=== PATIENT | male | born 1980 | race Caucasian/White ===

== ENCOUNTER → 2021-04-28 08:52 | Outpatient (CLI) | payer BC, SELFPAY | PROVIDERS: PCP Family Medicine; Visit Provider Nurse Practitioner | DX: Z20.822 Contact with and (suspected) exposure to COVID-19 (principal) | CPT/HCPCS: C9803; U0003; U0005 ==

== ENCOUNTER 2022-12-13 09:54 | Emergency (ER) | payer BC, SELFPAY ==
[2022-12-13 09:55] VITALS: BP 147/91; PULSE 116; RESP 17; TEMP 37.1; O2SAT 98; BMI 19.2
--- NOTE | 2022-12-13 10:09 | PC.NURSE ---
PT PLACED IN GOWN AND BLANKET PROVIDED
--- NOTE | 2022-12-13 10:15 | PC.NURSE ---
DR MISHRA AT BEDSIDE
--- NOTE | 2022-12-13 10:21 | US_ITS ---
FINAL REPORT TECHNIQUE: Ultrasound images of the testicles were obtained bilaterally. Color Doppler images were obtained. CLINICAL HISTORY: Right testicular swelling and pain COMPARISON: None FINDINGS: The testicles are normal in size There are no intratesticular masses seen.. There is proper flow within the testes. There is a complex septated right hydrocele which may be related to sequela from trauma or infection. Right epididymis is asymmetrically enlarged and hypervascular which could be due to right epididymitis. IMPRESSION: Possible right epididymitis with complex hydrocele. Urologic evaluation highly recommended. Reviewed, Interpreted and Dictated by Cameron Hatch MD Transcribed by Kylie Benton Authenticated and [facility]
--- NOTE | 2022-12-13 10:22 | PC.NURSE ---
Dr. Randolph and I at bedside for exam.
--- NOTE | 2022-12-13 10:40 | HMH.EDGENADL ---
Discharge Plan Disposition Patient Disposition: Home, Self-Care Prescriptions Prescriptions: New doxycycline hyclate 100 mg capsule 100 mg PO BID 7 Days Qty: 14 0RF metronidazole 500 mg tablet 500 mg PO BID 7 Days Qty: 14 0RF Referrals Follow up/Referrals: Dennis Joel MD [Primary Care Provider] - See instructions Activity Restrictions/Add. Instructions Additional Instructions/Restrictions: Call your family doctor to establish care for this visit to the emergency department and schedule follow-up within 48 hours to ensure improvement. If you have any worsening of your condition or any other concerning signs or symptoms, return to the emergency department or your primary care doctor for further evaluation. Talk to Dr. Joel about following urology follow-up. Take both antibiotics twice daily for 7 days for entire course Clinical Impressions Clinical Impression: Epididymitis Instructions Patient Instructions: DI for Urinary Tract Infection (UTI), DI for Urinary Tract Infection in Children Discharge ED Provider: Marques Randolph General Adult HPI General Chief complaint: Urogenital-Male Stated complaint: inflation in male area Time Seen by Provider: 12/13/22 10:02 Mode of Arrival: Ambulatory Source of Information: Patient Limitations: No Limitations Description of Symptoms (Recalled from ER Triage Doc. by RN): PT C/O RIGHT SIDED TESTICLE PAIN AND SWELLING SINCE SATURDAY AFTER LIFTING WEIGHTS History of Present Illness HPI narrative: Is a 42-year-old male with history of anxiety presenting with right testicular pain. Patient states that started 4 days prior to arrival. No trauma to the area, fevers or chills, dysuria, hematuria, or any other related complaints. Pain is made worse with application of pressure. Pain was mild and dull at first, has been crescendo in nature over the past 3 days and came for further evaluation. Patient no history of STD or STI, not sexually active, or any other relevant history. Related Data Previous Rx's Medication Instructions Recorded doxycycline hyclate 100 mg capsule 100 mg PO BID 7 days #14 caps 12/13/22 metronidazole 500 mg tablet 500 mg PO BID 7 days #14 tabs 12/13/22 Allergies Allergy/AdvReac Type Severity Reaction Status Date / Time NO KNOWN ALLERGIES Allergy Uncoded 04/02/17 15:31 [facility] Disclaimer: The information contained in this section may have been updated after the patient was seen, as this information can be updated by other users. Social History Smoking Status: Never smoker alcohol intake: never current occupational status: unemployed Travel in the last 8 weeks: None ROS Obtained: Yes All systems reviewed & no additional complaints except as documented Physical Exam General General appearance: alert, in no apparent distress and other ( ) Head Head exam: atraumatic and normocephalic Eye Eye exam: Present normal appearance, PERRL and EOMI ENT ENT exam: Present mucous membranes moist Neck Neck exam: Present normal inspection, full ROM and trachea midline Respiratory Respiratory exam: Absent respiratory distress, wheezes, stridor, accessory muscle use or prolonged expiratory phase Cardiovascular Cardiovascular exam: Present regular rate and normal rhythm Abdominal Exam Abdominal exam: Present soft; Absent distention, tenderness, guarding, rebound, rigidity or normal bowel sounds exam: Present testicular tenderness (Enlarged and indurated right testicle. Also indurated and tender/erythematous right scrotum. No focal tenderness. No obvious worsening with Valsalva. Cremasteric reflex negative bilaterally) and scrotal swelling; Absent urethral discharge Extremities Exam Extremities exam: Absent edema Neurological Exam Neurological exam: Present alert, oriented X3, CN II-XII intact and normal gait; Absent motor sensory deficit Skin Skin exam: Present warm and dry; Absent diaphoresis or erythema Medical Decision Making
--- NOTE | 2022-12-13 11:35 | PC.NURSE ---
PT RETURNED FROM US, UNABLE TO VOID AT THIS TIME
[2022-12-13 12:00] VITALS: BP 133/91; PULSE 100; O2SAT 95
[2022-12-13 12:30] VITALS: BP 132/99; PULSE 95; O2SAT 96
--- NOTE | 2022-12-13 12:41 | PC.NURSE ---
checked with pt, he has still been unable to give urine sample. Urinal at bedside. he has a call light at bedside to alert staff when he has given sample.
[2022-12-13 13:00] VITALS: BP 122/93; PULSE 85; O2SAT 96
[2022-12-13 13:01] LABS: Microscopic, Urine URINE MICROSCOPIC (MICROSCOPIC)
[2022-12-13 13:16] LABS: Appearance,Urine Slightly Cloudy (Clear); Color,Urine Yellow (Yellow)
[2022-12-13 13:17] LABS: Bilirubin,Urine Negative (Negative); Blood, Urine 3+ (Negative); Glucose,Urine (UA) Negative (Negative); Ketones,Urine 4+ (Negative); Leukocyte Esterase,Urine 3+ (Negative); Nitrate,Urine Negative (Negative); Protein,Urine 4+ (Negative); Specific Gravity, Urine 1.015 (1.005-1.030); Urobilinogen,Urine 0.2 EU/dl (0.2)
[2022-12-13 13:20] LABS: RBC,Urine 20-50 #/hpf (0-3); Squamous Epithelial Cell,Urine Occasional #/hpf (0-5); WBC,Urine 50-100 #/hpf (0-3)
[2022-12-13 14:39] VITALS: BP 134/88; PULSE 84; RESP 18; TEMP 36.9; O2SAT 95
[2022-12-18 21:34] LABS: Neisseria gonorrhoeae, NAA Negative (Negative)
== END 2022-12-13 14:41 | disposition home or self-care (01) ==
PROVIDERS: Emergency Provider Emergency Medicine; PCP Family Medicine
DX: N45.1 Epididymitis (principal)
CPT/HCPCS: 76870; 81001; 87086; 87088; 87186; 87491; 87591; 96372; 99284; J0696

== ENCOUNTER 2022-12-17 15:09 | Emergency (ER) | payer BC, SELFPAY ==
[2022-12-17] VITALS (9 sets, daily range): BP systolic 120–149; BP diastolic 84–99; PULSE 74–128; RESP 12–20; TEMP 36.6–37.1; O2SAT 93–98; BMI 19.2
--- NOTE | 2022-12-17 15:35 | ECG_ITS ---
APPROVED REPORT Exam: Resting ECG HR:94 bpm ECG Measurements Heart Rate 94 AXES MO 115 P 72 QRSd 95 QRS 57 QT 362 T 57 QTc 414 Conclusion SINUS RHYTHM WITH SHORT MO INTERVAL POSSIBLE LEFT ATRIAL ENLARGEMENT [-0.1mV P-WAVE IN V1/V2] POSSIBLE RIGHT VENTRICULAR CONDUCTION DELAY [RSR (QR) IN V1/V2] BORDERLINE ECG UNCONFIRMED REPORT Electronically signed by : Josiah Plascencia MD 12/18/2022 19:57:30
[2022-12-17 15:51] LABS: Microscopic, Urine URINE MICROSCOPIC (MICROSCOPIC)
[2022-12-17 16:03] LABS: Basophils # 0.1 K/mm3 (0-0.2); Basophils % 0.4 % (0.1-2.0); Eosinophils # 0.4 K/mm3 (0.0-0.4); Hematocrit 47.4 % (42.0-52.0); Hemoglobin 15.4 g/dL (14.1-18.0); Lymphocytes # 2.3 K/mm3 (0.7-4.5); Lymphocytes % 13.3 % (10-50); Mean Corpuscular HGB Conc 32.6 g/dL (31.8-35.4); Mean Corpuscular Hemoglobin 31.2 pg (27.0-31.2); Mean Corpuscular Volume 95.7 fl (80-94); Mean Platelet Volume 8.5 fl (7.4-10.4); Monocytes # 0.8 K/mm3 (0.1-1.0); Monocytes % 4.4 % (1.7-9.3); Neutrophils % 79.9 % (37.0-80.0); Platelet Count 373 K/mm3 (142-424); Red Blood Count 4.95 M/mm3 (4.60-6.20); Red Cell Distribution Width 12.8 % (11.5-17.5); White Blood Count 17.6 K/mm3 (4.8-10.8)
[2022-12-17 16:05] LABS: Chloride 100 mmol/L (98-107); MANUAL DIFFERENTIAL MANUAL DIFFERENTIAL (MANUAL DIFF); Potassium 3.4 mmoL/L (3.5-5.1); Sodium 138 mmol/L (136-145)
[2022-12-17 16:07] LABS: Alanine Aminotransferase 33 U/L (12-78); Alkaline Phosphatase 95 U/L (38-126); Aspartate Amino Transferase 42 U/L (17-59); Bilirubin,Total 0.3 mg/dl (0.2-1.3); Blood Urea Nitrogen 11 mg/dl (9-20); Creatinine Clearance Estimated 115 mL/min (50-200); Estimated Glomerular Filt Rate 124 ml/min (>60); GFR (African American) 150 ML/MIN (>60)
[2022-12-17 16:08] LABS: Albumin/Globulin Ratio 1.3 (1.1-1.8); Anion Gap 15.4 mEq/L (5-15); Calcium 9.6 mg/dl (8.4-10.2); Carbon Dioxide 26 mmol/L (22.0-30.0); Globulin 3.1 g/dL (1.3-3.2); Glucose 149 mg/dl (74-100); Total Protein,Serum 7.1 g/dl (6.3-8.2)
[2022-12-17 16:10] LABS: Ethyl Alcohol < 10 mg/dl (0-10)
[2022-12-17 16:11] LABS: Appearance,Urine Clear (Clear); Bilirubin,Urine Negative (Negative); Blood, Urine Negative (Negative); Color,Urine Yellow (Yellow); Glucose,Urine (UA) Negative (Negative); Ketones,Urine Negative (Negative); Leukocyte Esterase,Urine Negative (Negative); Nitrate,Urine Negative (Negative); PH,Urine 6.5 (5.0-8.5); Protein,Urine Negative (Negative); Specific Gravity, Urine 1.015 (1.005-1.030); Urobilinogen,Urine 0.2 EU/dl (0.2)
[2022-12-17 16:30] LABS: Eosinophils % 2 % (0-3); Lymphocytes % 23 % (10-50); Neutrophils % 75 % (42-76); Platelet Estimate Normal; RBC Morphology Normal; Total Cells Counted 100
[2022-12-17 16:31] LABS: WBC,Urine Occasional #/hpf (0-3)
--- NOTE | 2022-12-17 16:48 | HMH.EDGENADL ---
Discharge Plan Disposition Patient Disposition: Home, Self-Care Prescriptions Prescriptions: No Action doxycycline hyclate 100 mg capsule 100 mg PO BID 7 Days Qty: 14 0RF metronidazole 500 mg tablet 500 mg PO BID 7 Days Qty: 14 0RF Referrals Follow up/Referrals: Dennis Joel MD [Primary Care Provider] - See instructions Activity Restrictions/Add. Instructions Additional Instructions/Restrictions: Continue taking antibiotics as prescribed. Please return to the emergency department with new, changing, worsening symptoms. Please follow-up with your primary care provider this week. Clinical Impressions Clinical Impression: Mouth sore, Anal discharge Instructions Patient Instructions: DI for Skin Abscess Discharge ED Provider: Hema Aguila General Adult HPI General Chief complaint: Skin/Abscess/Foreign Body Stated complaint: dizzy, Time Seen by Provider: 12/17/22 15:32 Mode of Arrival: Ambulatory Source of Information: Patient Limitations: No Limitations Description of Symptoms (Recalled from ER Triage Doc. by RN): 42 yo M presents to ED with c/o mouth sores, anal discharge, rash, and sore on groin site. pt was seen in ED recently and was given abs to take at home. pt reports that he began to look things up on the internet and made him feel worse about his symptoms. History of Present Illness HPI narrative: Patient is a 42-year-old male presenting to the emergency department with multiple complaints. Patient was seen in the emergency department multiple days ago and treated for epididymitis with ceftriaxone, doxycycline, Flagyl. Patient was discharged at that time.Over the past few days, patient has developed mouth sores, yellowing of his eyes, anal discharge and a new lesion in his left groin. Patient has been taking doxycycline and Flagyl for his symptoms. Denies fevers, chills, abdominal pain, penile discharge which he says is resolved from his previous visit. Related Data Previous Rx's Medication Instructions Recorded doxycycline hyclate 100 mg capsule 100 mg PO BID 7 days #14 caps 12/13/22 metronidazole 500 mg tablet 500 mg PO BID 7 days #14 tabs 12/13/22 Allergies Allergy/AdvReac Type Severity Reaction Status Date / Time NO KNOWN ALLERGIES Allergy Uncoded 04/02/17 15:31 [facility] Disclaimer: The information contained in this section may have been updated after the patient was seen, as this information can be updated by other users. Social History Smoking Status: Current every day smoker alcohol intake: never current occupational status: unemployed Travel in the last 8 weeks: None ROS Obtained: Yes All systems reviewed & no additional complaints except as documented Physical Exam General General appearance: alert and in no apparent distress Head Head exam: atraumatic, normocephalic and normal inspection Eye Eye exam: Present normal appearance, PERRL and EOMI ENT ENT exam: Present normal exam, normal oropharynx, mucous membranes moist, TM's normal bilaterally and normal external ear exam Neck Neck exam: Present normal inspection, full ROM and trachea midline; Absent meningismus or lymphadenopathy Chest Chest inspection: Present normal inspection and symmetric chest wall rise; Absent tenderness Respiratory Respiratory exam: Present normal lung sounds bilaterally; Absent respiratory distress Cardiovascular Cardiovascular exam: Present regular rate and normal rhythm; Absent JVD Abdominal Exam Abdominal exam: Present soft and normal bowel sounds; Absent distention, tenderness or guarding Rectal Exam Rectal exam: Present normal inspection exam: Present scrotal swelling (mild right sided scrotal swelling, no significant tenderness) and other (Small 1 cm red lesion in left groin. Nontender, nonblanching. ) Extremities Exam Extremities exam: Present normal inspection, full ROM and normal capillary refill; Absent calf tend
--- NOTE | 2022-12-17 19:10 | PC.NURSE ---
rounded on patient, given warm blanket no other needs
[2022-12-19 12:45] LABS: HIV Screen 4th Generation wRfx Non Reactive (Non Reactive)
[2022-12-19 22:20] LABS: Neisseria gonorrhoeae, NAA Negative (Negative)
== END 2022-12-17 20:01 | disposition home or self-care (01) ==
PROVIDERS: Emergency Provider Emergency Medicine; PCP Family Medicine
DX: R42 Dizziness and giddiness (principal); K62.89 Other specified diseases of anus and rectum; R21 Rash and other nonspecific skin eruption; F17.200 Nicotine dependence, unspecified, uncomplicated
CPT/HCPCS: 80053; 81001; 85007; 85025; 86703; 87491; 87591; 93005; 96360; 99285; G0432

== ENCOUNTER 2023-09-11 11:25 | Outpatient (CLI) | payer BC, SELFPAY ==
--- NOTE | 2023-09-11 11:45 | XR_ITS ---
FINAL REPORT CLINICAL HISTORY: FALL on saturday left side rib pain COMPARISON: None FINDINGS: A single view of the chest with 3 views of the left ribs were obtained. There is no acute cardiopulmonary process. No pneumothorax is identified. No displaced rib fracture identified. IMPRESSION: No acute process. Reviewed, Interpreted and Dictated by Cameron Hatch MD Transcribed by Kylie Benton Authenticated and . [facility]
== END 2023-09-11 23:59 | disposition home or self-care (01) ==
LOC: RAD 11:26
PROVIDERS: PCP Family Medicine; Visit Provider Family Medicine
DX: R07.89 Other chest pain (principal); W19.XXXA Unspecified fall, initial encounter
CPT/HCPCS: 71101